=== PATIENT | female | born 1960 | race Caucasian/White ===

== ENCOUNTER 2016-07-28 20:45 | Emergency (ER) | payer SELFPAY ==
[2016-07-28 20:54] VITALS: TEMP 97.4; BMI 29.9
[2016-07-28] MEDS ORDERED: PREDNISONE 50 MG TAB PO ONE (21:05)
[2016-07-28] MEDS ORDERED: Albuterol/Ipratropium Neb 3 ML NEB NEB ONE (21:07)
--- NOTE | 2016-07-28 21:08 | EDPRACDOC ---
- General Information Chief Complaint: Dyspnea/Resp distress Stated Complaint: DIFF.BREATHING WHEEZING Time Seen by Provider: 07/28/16 20:59 Mode Of Arrival: Car Home Medications: Home Medications Metronidazole [Flagyl] 500 mg PO TID #30 tab 05/27/16 Ondansetron [Zofran Odt] 4 mg PO Q6H #20 tab.rapdis 05/27/16 Tramadol HCl 50 - 100 mg PO Q4-6H #20 tablet 05/27/16 Azithromycin [Zithromax] 250 mg PO DAILY #6 tablet 07/28/16 Benzonatate [Tessalon Perle] 200 mg PO TID PRN #14 capsule 07/28/16 Prednisone [Deltasone, Orasone] 20 mg PO DAILY #20 tab 07/28/16 Allergies/Adverse Reactions: Allergies Allergy/AdvReac Type Severity Reaction Status Date / Time acetaminophen [From Percocet] Allergy Unknown Nausea/Vomi Verified 05/27/16 15: 37 ting codeine Allergy Unknown Itching Verified 05/27/16 15:37 oxycodone HCl [From Percocet] Allergy Unknown Nausea/Vomi Verified 05/27/16 15: 37 ting - History of Present Illness Onset: 1 MONTH Shortness of Breath: Mild Relevant History: Reports: COPD, Other (BRONCHITIS) Cough: Reports: Non-productive Rhinorrhea: Reports: Clear SOB Worsens with: Reports: Exertion, Movement, Anxiety, Coughing, Lying Flat, During Sleep SOB Improves with: Reports: Inhaler, Rest Associated Signs and symptoms: Reports: Cough, Nasal Symptoms. Denies: Fever, Vomiting, Diarrhea, Myalgia, Rash Other History: SEEN ED ONCE AND PCP ONCE. ED Past Medical History - History Reviewed Yes Nurses notes reviewed and agree except as marked - Patient Medical History Cardiac History: Reports: Hypertension Respiratory History: Reports: COPD Psychological History: Denies: Depression Surgical History: Reports: Hysterectomy, Other (carpel tunnel, stent) - Social Medical History Smoking Status: Heavy tobacco smoker (5 or more cigarettes/day or daily pipe/ cigar) ETOH: None Substance Abuse: None Lives With: Family Lives In: Home EDM Review of Systems - Review of Systems ROS Negative Except as Marked: Yes All systems reviewed and were negative except as marked - Physical Exam Constitutional: No apparent distress, Alert Oriented to: Time, Person, Place Last recorded Vital Signs: Last Vital Signs Temp 97.4 F L 07/28/16 20:50 Pulse 109 07/28/16 20:50 Resp 20 07/28/16 20:50 BP 156/80 07/28/16 20:50 Pulse Ox 92 07/28/16 20:50 Oxygen Pulse Oxygen Saturation 92 O2 Device Room Air Oxygen Flow Rate Fraction of Inspired Oxygen ( FIO2) - HEENT Head: Normal Eye Exam: negative: Pale Conjunctiva, Scleral Icterus Oropharynx: Normal. negative: Membranes Dry Nose: No Symptoms Reported Neck: Normal. negative: Edema, Limited ROM, Lymphadenopathy, Meningeal Signs - Respiratory/Cardiovascular Respiratory: Diminished, Tachypnea, Other (TIGHT). negative: Accessory Muscle Use, Rales, Retractions, Wheezes Cardiovascular: Normal - GI Auscultation: Normal Palpation: Normal Tenderness: Non tender Hummel's Sign: Negative - Musculoskeletal Extremities: negative: Pedal Edema - Neurologic Memory Impaired: Normal Mood Description: Normal Thought: Coherent ED SOB MDM - Diagnostic Imaging Chest Image interpreted by: Radiologist Diagnostic Imaging Comments: Patient Name: ALVARO BORGES LOC: ED : 1960 AGE: 55 Order Date:07/28/16 Date of Service:10/08 Report # [id number] Ord Physician: Kassie Kline MD Exam # [id number] Emergency Physician: Kassie Kline MD Exam(s): [id number] RAD/DG CHEST 2V CLINICAL DATA: Shortness of breath for 4-5 weeks, not improving. Cough. EXAM: CHEST 2 VIEW COMPARISON: Chest radiograph May 27, 2016 FINDINGS: Cardiomediastinal silhouette is normal. The lungs are clear without pleural effusions or focal consolidations. Trachea projects midline and there is no pneumothorax. Soft tissue planes and included osseous structures are non-suspicious. IMPRESSION: Normal chest. Electronically Signed By: Randee Brooks M.D. On: 07/28/2016 22:32 Electronically Signed By: Randee Brooks MD Electronically Signed Date/Time: [id number] Dictate Date/Time: 07/28/162231 Technologist: Annemarie Johnson Transcribed By: Nasreen Transcribed Date/Time: 02/04/17 2232 - Departure Disposition: Home Condition: Stable Final Diagnosis: Acute exacerbation of chronic obstructive airways disease, Acute bronchitis Instructions: COPD (Chronic Obstructive Pulmonary Disease) (ED), Acute Bronchitis (ED) Education/Counseling Given To: Patient Education/Counseling Given Regarding: Diagnosis, Treatment, Prognosis Referrals: Samra Lucio, DOOR WORKER [Primary Care Provider] - One Week Prescriptions: New Azithromycin [Zithromax] 250 mg PO DAILY #6 tablet Benzonatate [Tessalon Perle] 200 mg PO TID PRN #14 capsule PRN Reason: Cough Prednisone [Deltasone, Orasone] 20 mg PO DAILY #20 tab No Action Metronidazole [Flagyl] 500 mg PO TID #30 tab Ondansetron [Zofran Odt] 4 mg PO Q6H #20 tab.rapdis Tramadol HCl 50 - 100 mg PO Q4-6H #20 tablet
[2016-07-28] MEDS ORDERED: PREDNISONE 20 MG TAB PO ONE (22:00)
--- NOTE | 2016-07-28 22:35 | DIRPT ---
CLINICAL DATA: Shortness of breath for 4-5 weeks, not improving. Cough. EXAM: CHEST 2 VIEW COMPARISON: Chest radiograph May 27, 2016 FINDINGS: Cardiomediastinal silhouette is normal. The lungs are clear without pleural effusions or focal consolidations. Trachea projects midline and there is no pneumothorax. Soft tissue planes and included osseous structures are non-suspicious. IMPRESSION: Normal chest. Electronically Signed By: Randee Brooks M.D. On: 07/28/2016 22:32
[2016-07-28 23:24] VITALS: BP 121/70; PULSE 89
== END 2016-07-28 23:23 | disposition home or self-care (01) ==
LOC: ED 20:45
DX: J44.0 Chronic obstructive pulmonary disease with (acute) lower respiratory infection (principal); J20.9 Acute bronchitis, unspecified; J44.1 Chronic obstructive pulmonary disease with (acute) exacerbation
CPT/HCPCS: 71020; 94640; 94664; 99283; J3490; J7620